=== PATIENT | male | born 1935 | race Caucasian/White ===

== ENCOUNTER 2023-04-05 08:57 | Observation (INO) ==
--- NOTE | 2023-03-30 10:55 | Anesthesiology Consultation ---
Date of Service March 30, 2023 Assessment & Plan (1) Encounter for pre-operative examination: Chart Review Chart Review: Acceptable Risk for Surgery and Patient NOT seen in Pre Admission Testing - Spoke with daughter 03/30/23- patient had fall beginning of 03/2023. Has since seen surgeon since fall. Patient to get sutures removed from right 4th and 5th digits, Sunday04/02/23 (healing well per daughter)). Patient does have minor fracture of right metacarpal- no formal splint needed but wrapping hand up daily with cause as form of splint. Will have in place DOS. -Infectious Disease screening: Per PAT nursing assessment on 03/30/23. No known infectious disease contacts in past 10 days or current infectious disease symptoms. No recent travel outside the country. History Surgery Operation Date: 04/05/23 08:15 Proposed Procedures p Robotic Laparoscopic Assisted Partial Nephrectomy, Possible Radical-Right - Ori Enciso DO Height/Weight Height: 5 ft 9 in Weight: 72.575 kg Allergies Allergy/AdvReac Type Severity Reaction Status Date / Time No Known Allergies Allergy Verified 03/02/23 11:21 Medications Home Medications Medication Instructions Recorded Confirmed Last Taken atorvastatin 20 mg tablet 20 mg PO QPM 02/12/23 03/30/23 Unknown cholecalciferol (vitamin D3) 25 25 mcg PO DAILY 02/12/23 03/30/23 Unknown mcg (1,000 unit) capsule coenzyme Q10 100 mg capsule 100 mg PO DAILY 02/12/23 03/30/23 Unknown escitalopram oxalate 10 mg tablet 10 mg PO QAM 02/12/23 03/30/23 Unknown levothyroxine 112 mcg capsule 112 mcg PO QAM 02/12/23 03/30/23 Unknown melatonin 5 mg capsule 5 mg PO QPM PRN Sleep 02/12/23 03/30/23 Unknown triamcinolone acetonide 0.1 % 1 applic topical BID PRN skin 02/12/23 03/30/23 Unknown topical cream irritation tumeric root extract 1 tab PO DAILY 02/12/23 03/30/23 Unknown carbidopa 25 mg-levodopa 100 mg 1.5 tab PO QID 02/15/23 03/30/23 Unknown tablet carbidopa ER 50 mg-levodopa 200 mg 1 tab PO HS 02/15/23 03/30/23 Unknown tablet,extended release Past Medical History Medical History (Updated 03/30/23 @ 11:29 by Denita Laboy PA-C) Anxiety Constipation Depression Dyslipidemia History of prostate cancer - radiation seeds History of recent fall Beginning of 03/2023- laceration (on his 4th and 5th fingers on right hand) and fx of right metacarpal (no splint- just has gauze in place) Hypothyroidism Parkinson disease Right bundle branch block follows w/ cardio at [facility] Right kidney mass Past Surgical History Surgical History Hx of colonoscopy Hx of tooth extraction Social History Smoking Status: Never smoker Do You Dip or Chew Tobacco: No Hx Alcohol Use: No Hx Substance Use: No substance use type: does not use Testing Laboratory Results 03/22/23= WBC: 5.24 H/H: 13.2/39.7 PLATELETS: 209 SODIUM: 139 POTASSIUM: 4.0 CHLORIDE: 106 CO2: 29.0 BUN: 25.0 CREATININE: 1.10 GLUCOSE: 99 03/20/23= URINE CULTURE: No growth- less than 1000 colonies/ml Electrocardiogram Date: 03/22/23 Sinus bradycardia with first-degree AV block at 57 bpm Right bundle branch block Chest X-Ray Date: 03/22/23 Findings: + NAD No acute cardiopulmonary process identified. Mild atherosclerotic changes of aorta. Coarse bilateral interstitial lung markings are present. Linear scarring and/or atelectasis of lower lobes and lung bases again seen. Other Testing CT thorax = scattered atelectasis mostly mid and lower lung field bilaterally. Mild emphysema. Subtle subpleural secondary lobular septal thickening. No lung nodules. Nonspecific subtle subcentimeter lucencies within the visualized thoracic and lumbar vertebral arteries CT abdomen 03/09/2023 = large solid mass within upper/mid pole right kidney. Mass measures at least 6.0 cm. Recommend urology consultation. Subtle subcentimeter lucencies suggested within the visualized thoracic and lumbar vertebral arteries versus normal variation. Consider whole-body bone scan to further evaluate as clinically warranted. 3.4 probable cyst midpole right kidney. 3 mm stone lower right renal pelvis. 8.2 cm cyst midpole left kidney. 5 mm hypodensity mid/lower pole left kidney. Favor hemorrhagic cyst. Other etiology not excluded. 5 mm hypodensity midpole left kidneyfavors hemorrhagic cyst. 1 cm cyst upper pole left kidney. 1.2cm cyst midpole left kidney. 1 cm probable cyst right lobe of the liver.
[~2023-04-05 08:57] MED LIST: LR 15ML/HR IV SCH; REMIFENTANIL HCL 1 MG VIAL IV ONE; ceFAZolin 2000MG 2,000 MG/15 ML SYR IV SCH
--- NOTE | 2023-04-05 09:16 | History & Physical Bridge Note ---
Date of Service April 05, 2023 History & Physical Bridge Note I have examined the patient, reviewed the History & Physical and in the interval since the performance of the History & Physical I have noted the following changes of clinical significance: no changes noted
[2023-04-05] MEDS ORDERED: BUPIVACAINE 0.5 % 5 MG/1 ML MPF 30ML VIAL ONE (10:29)
[2023-04-05] MEDS ORDERED: LIDOCAINE 2% 2 ML VIAL/AMP(20MG/ML) INFIL ONE (10:30)
[2023-04-05] MEDS ORDERED: fentaNYL citrate PF 100 MCG/2 ML VIAL ONE (10:30)
[2023-04-05] MEDS ORDERED: PROPOFOL IV EMULSION 10 MG/ML 20 ML VIAL IV ONE (10:30)
[2023-04-05] MEDS ORDERED: DEXAMETHASONE SOD INJ 4 MG/ML VIAL ONE (10:30)
[2023-04-05] MEDS ORDERED: ROCURONIUM BROMIDE 10 MG/ML 5 ML VIAL IV ONE ×3 (10:30→12:23)
[2023-04-05] MEDS ORDERED: ONDANSETRON INJ 2 MG/ML 2 ML VIAL ONE (10:30)
[2023-04-05] MEDS ORDERED: ePHEDrine sulfate 50 MG/ML AMP IV PRN (10:38)
[2023-04-05] MEDS ORDERED: fentaNYL citrate PF 100 MCG/2 ML VIAL IV PRN (10:38)
[2023-04-05] MEDS ORDERED: ONDANSETRON INJ 2 MG/ML 2 ML VIAL IV PRN ×2 (10:38→14:32)
[2023-04-05] MEDS ORDERED: ATROPINE SULFATE 0.1 MG/ML 10ML SYR IV PRN (10:38)
[2023-04-05] MEDS ORDERED: GLYCOPYRROLATE 0.2 MG/ML VIAL ONE (11:43)
[2023-04-05] MEDS ORDERED: HYDROmorphone INJ 2 MG/ML SYR/VIAL ONE (12:29)
[2023-04-05] MEDS ORDERED: ePHEDrine sulfate 50 MG/5 ML SYR ONE (12:33)
[2023-04-05] MEDS ORDERED: PHENYLEPHRINE 100MCG/ML 10ML SYR IV ONE (12:33)
[2023-04-05] MEDS ORDERED: TISSEEL FIBRIN SEALANT 10ML TOP ONE (12:41)
[2023-04-05] MEDS ORDERED: FLOSEAL HEMOSTATIC MATRIX 10ML TOP ONE (12:41)
[2023-04-05] MEDS ORDERED: SURGICEL ABSORB HEMOSTAT 2IN X 14IN TOP ONE (12:41)
[2023-04-05] MEDS ORDERED: SUGAMMADEX SODIUM 200 MG/2 ML VIAL IV ONE (12:43)
--- NOTE | 2023-04-05 13:26 | Operative Report ---
PG Post Operative Report Pre & Post Diagnosis Operation Date: 04/05/23 10:35 Pre-Op Diagnosis: Right Kidney Mass Post-Op Diagnosis: Right Kidney Mass I identified the patient and participated in the time-out.: Yes Procedure Operation Date: 04/05/23 10:35 Actual Procedures p Robotic Assisted Laparoscopic Right Radical Nephrectomy(Right) - Ori Enciso DO Surgeon Ori Enciso, II, DO Heating Systems Installer KIMBERLEE Echavarria Estimated Blood Loss 100 Findings Consistent with Post-Op Diagnosis Large Right renal mass. Duplicated vein and early branch of artery with posterior vessels appearing to enter the medial edge of the tumor. Numerous venous vessels around the mass in the retroperitoneal fat. Specimens Right Radical Kidney Drains 18 Fr Mathis Anesthesia Type General Complications none Disposition Disposition: Recovery Room Indications Patient with right renal mass suspicious for malignancy. Risks and benefits discussed at length. Description of Procedure The patient was brought to the operative suite and placed under general endotracheal intubation anesthesia in the supine position. The patient was transferred to lateral position with the right flank exposed. The patient was placed into a flex'ed position and then placed into mild reverse Trendelenberg. At this point, the patient prepped and draped in the usual sterile fashion and a timeout was completed. Preoperative weight based antibiotics had been given. TIFFANY's and SCD's were placed on the patient's lower extremities. A catheter was placed by nursing using sterile technique. With the time out completed the patient was flexed and the skin was marked. The lateral port site was anesthetized. A small incision was made into the skin and subcutaneous tissues. A Varess needle was selected and placed. The needle was easily moved and it was irrigated and aspirated without any issues or concerns for placement. Insufflation commenced. The 8 mm camera port was placed. The abdominal cavity was further insufflated. The laparoscopic camera was placed and the abdominal cavity inspected. No concerning features were noted. At this point, the skin was marked for port placement and 8mm working ports were placed. The skin was anesthetized down to fascia and an approx 1cm incision was made to place the 2 x 8mm ports. A 12 mm Robotic Port and a 12 mm assistant track and field coach port were also placed in similar fashion under direct visualization. The robot was positioned and docked. The camera was placed and all trocars were positioned under direct visualization. Jyothi Echavarria was integral in port placement, camera utilization, and docking procedure. She remained in sterile attire and then proceeded to assist the remainder of the case. The colon was mobilized medially to expose the retroperitoneum and the area assessed. Adhesions were freed to allow mobilization. A small amount of further adhesions were noted from the colon and were freed. These were dissected with blunt technique. Cautery was used to assist dissection and control bleeding. The retroperitoneal fat was assessed. Starting distally the retroperitoneum was dissected and care was taken to dissect down near the IVC. The gonadal vein and ureter were identified. This was then followed superiorly. Dissection stayed toward the midline along the IVC and the ureter and gonadal vein were followed up towards the renal hilum. The dissection was followed to the renal pelvis. The Renal Vein was identified and exposed. Dissection was taken further superior. The Renal Artery and Vein were then cleaned and exposed. Posterior to the Vein and artery an additional vein as well as a likely branch of the renal artery were discovered. These posterior vessels appeared to travel towards the large upper pole mass. The vessels were adequately exposed and good access was achieved. Dissection moved superiorly along the vessels. The perirenal fat anterior to the kidney was then dissected. The medial edge of the mass and surrounding tissues were exposed. The large posterior vessels did appear to enter into the hilum at the location of the medial edge of the mass. Due to this and the large size of the mass, it appeared it would not be amendable to partial nephrectomy. At this point the decision was made to proceed with radical nephrectomy. The Vessels were assessed a final time. A robotic stapling device arm was placed in the 12 mm robotic port. The vessels were able to be completely surrounded with the vascular load of the stapler. The clamp was placed and the vessels assessed. The stapling load was then engaged and the vessels were Ligated/cut and stapled. The stapler was disengaged and no bleeding or issues. The vessel stumps showed no sign of issues or problems. After inspecting the ligated vessels the posterior dissection was then completed to free the kidney posteriorly. The lateral edge of the kidney was then incised further to allow more mobility. The liver was gently retracted and the superior border was dissected. Throughout the superior retroperitoneal tissue and number of vessels were noted. These appear to be associated with the large upper pole mass. With Hem-o-marisela clips were utilized when necessary to ligate these somewhat larger vessels. A majority of the vessels were able to be ligated without major issue. No major considerable bleeding was noted. The superior portion of the retroperitoneal fat was dissected and the attachments to the sidewall and posterior wall were able to be freed without major issue. With the kidney completely freed and the mass undisturbed attention was then taken to the inferior dissection. Moving from the lateral edge down the tissue was freed. The ureter was once again isolated. A vascular staple load from the stapling arm of the robotic device was utilized in order to ligate the ureter and surrounding Gerota/retroperitoneal fat. The kidney was then completely freed. The dissection bed was then irrigated and the entire area inspected. Surgicel hemostatic agent sheets were placed over the vessel stumps and on the resection bed/ inferior edge of liver. Hemostatic agents Tisseel and Floseal were also placed. Hemostatic agent was also placed on the vessels. No major bleeding or other issues. The entire dissection space was inspected one final time. No bleeding or injuries or areas of concern were noted. No tumor or other concerning features were noted. At this point, the robot was undocked and moved away from the patient. The port sites were all assessed laparoscopically. The superior 12 mm assistant track and field coach port site was closed with the Win-Villalta device and were closed with 1-0 Vicryl suture. The inferior robotic port was opened further exposing fascia which was then opened in order to remove the specimen. Once the fascia was opened and the specimen was able to be grasped and removed. No major issues or concerns. No considerable bleeding. A 1-0 PDS suture was used to close fascia. The skin at each site was closed with a skin stapling device. The area was cleaned and bandages placed on each incision. The patient was cleaned and bandaged. The patient was moved back into the supine position The patient was cleaned, aroused from anesthesia, and transferred to the pacu in stable condition having tolerated the procedure well with no complications. I was present and participated in all aspects of the procedure. KIMBERLEE Henao was critical in the portions as mentioned above. I attest to the content of the Intraoperative Record and any orders documented therein. Any exceptions are noted below.
--- NOTE | 2023-04-05 14:05 | Anesthesiology Progress Note ---
Date of Service April 05, 2023 Anesthesia Post Procedure Vital Signs Vital Signs: Temp Pulse Resp BP BP Pulse Ox O2 Del Method 04/05/23 14:00 36.2 C L 60 17 138/81 99 Nasal Cannula 04/05/23 13:50 58 L 17 158/81 H 99 Oxymask 04/05/23 13:40 58 L 18 164/83 H 99 Oxymask 04/05/23 13:30 36.1 C L 60 18 170/84 H 100 Oxymask 04/05/23 10:15 174/94 H 04/05/23 09:37 36.6 C 57 L 20 222/99 H 206/97 H 96 Room Air O2 Flow Rate 04/05/23 14:00 2 04/05/23 13:50 5 04/05/23 13:40 5 04/05/23 13:30 5 04/05/23 10:15 04/05/23 09:37 Transfer of Care Handoff Completed per policy Notes Mental Status: alert / awake / arousable Patient Amnestic to Procedure: Yes Nausea / Vomiting: adequately controlled Pain: adequately controlled Airway Patency, RR, SpO2: stable & adequate BP & HR: stable & adequate Hydration State: stable & adequate Anesthetic Complications: no major complications apparent and Pt Satisfied with anesthetic care
[2023-04-05] MEDS ORDERED: oxyCODONE HCL IR 5 MG TAB (IMMEDIATE RELEASE) PO PRN ×2 (14:32)
[2023-04-05] MEDS ORDERED: MoRPHine SULFATE 2 MG/ML CARP IV PRN (14:32)
[2023-04-05] MEDS ORDERED: MoRPHine SULFATE 4 MG/ML 1 ML CARP\\VIAL IV PRN (14:32)
[2023-04-05 14:36] LABS: Basophils # (auto) 0.02 K/uL (0.00-0.20); Basophils % (auto) 0.3 %; Hematocrit (blood only) 38.8 % (42.0-52.0); Hemoglobin 12.6 g/dl (14.0-18.0); Immature Granulocytes # (auto) 0.04 K/uL (0.01-0.20); Immature Granulocytes % (auto) 0.6 %; Lymphocytes # (auto) 0.66 K/uL (1.20-3.40); Lymphocytes % (auto) 9.9 %; Mean Corpuscular Hemoglobin 29.2 pg (25.0-34.0); Mean Corpuscular Hgb Conc 32.5 g/dL (32.0-36.0); Mean Platelet Volume 10.4 fL (9.4-12.4); Monocytes # (auto) 0.15 K/uL (0.11-0.59); Monocytes % (auto) 2.2 %; Neutrophils # (auto) 5.63 K/uL (1.40-6.50); Platelet Count 159 K/uL (130-400); RDW Coefficient of Variation 12.9 % (11.5-14.5); RDW Standard Deviation 42.8 fL (36.4-46.3); Red Blood Count 4.31 M/uL (4.70-6.10)
[2023-04-05] MEDS ORDERED: MELATONIN 3 MG TAB PO PRN (14:49)
[2023-04-05 15:05] LABS: Calcium 9.4 mg/dl (8.6-10.3); Potassium 3.7 mmol/L (3.5-5.1)
[2023-04-05 15:11] LABS: BUN Creatinine Ratio 15.6 (10-20); Creatinine Clr Calc Pharmacy 53.2 ml/min; Est GFR (African American) 81.5 ml/min; Est GFR (Non-African American) 70.3 ml/min
[2023-04-05] MEDS: SODIUM CHLORIDE 0.9% 1,000 ML IV SCH (15:12)
[2023-04-05] MEDS: ACETAMINOPHEN 325 MG TAB PO SCH ×2 (15:12→20:01)
[2023-04-05] MEDS: CARBIDOPA/LEVODOPA 25/100MG TAB PO SCH (16:08)
[2023-04-05] MEDS: ceFAZolin 2000MG 2,000 MG/15 ML SYR IV SCH (18:40)
[2023-04-05] MEDS: CARBIDOPA/LEVODOPA 50/200MG EXT REL TAB PO SCH (20:00)
[2023-04-05] MEDS: DOCUSATE SODIUM 100 MG CAP PO SCH (20:00)
[2023-04-05] MEDS: ATORVASTATIN 20 MG TAB PO SCH (20:01)
[2023-04-06] MEDS: SODIUM CHLORIDE 0.9% 1,000 ML IV SCH (00:49)
[2023-04-06] MEDS: ACETAMINOPHEN 325 MG TAB PO SCH ×5 (02:52→20:31)
[2023-04-06] MEDS: ceFAZolin 2000MG 2,000 MG/15 ML SYR IV SCH (03:36)
[2023-04-06] MEDS: CARBIDOPA/LEVODOPA 25/100MG TAB PO SCH ×4 (05:40→17:31)
[2023-04-06] MEDS: LEVOTHYROXINE SODIUM 112 MCG TABLET PO SCH (05:41)
[2023-04-06] MEDS ORDERED: ACETAMINOPHEN 325 MG TAB PO STA (06:10)
--- NOTE | 2023-04-06 07:52 | Hospitalist Consultation ---
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, stage 2 (mild): GFR pre op was 70 and Cr Cl was 0.96 (3) Parkinson disease: Pt is on a multi dose regimen at home with am and hs doses in addition to tid dosing of sinemet (4) Depression: chronic and stable continue lexapro (5) Hypothyroidism: chronc and stable continue synthroid ordered tsh for am labs 04/07/23 Plan glucose intolerance will follow post op and add ssi if glc is above 185 or so dvt prevention is scd in the acute post operative state History of Present Illness Reason for Consultation: post op radical right 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 pt is with mild pain in right side, no hematuria, removed david catheter, family at bedside and updated Allergies Allergy/AdvReac Type Severity Reaction Status Date / Time No Known Allergies Allergy Verified 04/05/23 09:40 Home Medications Medication Instructions Recorded Confirmed Type atorvastatin 20 mg tablet 20 mg PO QPM 02/12/23 04/05/23 History cholecalciferol (vitamin D3) 25 25 mcg PO DAILY 02/12/23 04/05/23 History mcg (1,000 unit) capsule coenzyme Q10 100 mg capsule 100 mg PO DAILY 02/12/23 04/05/23 History escitalopram oxalate 10 mg tablet 10 mg PO QAM 02/12/23 04/05/23 History (Lexapro) levothyroxine 112 mcg capsule 112 mcg PO QAM 02/12/23 04/05/23 History melatonin 5 mg capsule 5 mg PO QPM PRN Sleep 02/12/23 04/05/23 History triamcinolone acetonide 0.1 % 1 applic topical BID PRN skin 02/12/23 04/05/23 History topical cream irritation tumeric root extract 1 tab PO DAILY 02/12/23 04/05/23 History carbidopa 25 mg-levodopa 100 mg 1.5 tab PO QID 02/15/23 04/05/23 History tablet carbidopa ER 50 mg-levodopa 200 mg 1 tab PO HS 02/15/23 04/05/23 History tablet,extended release Patient History Medical History (Updated 04/06/23 @ 07:47 by Rah Manzanares MD) Constipation Parkinson disease Right bundle branch block follows w/ cardio at [facility] Anxiety Depression History of prostate cancer - radiation seeds Dyslipidemia Hypothyroidism History of recent fall Beginning of 03/2023- laceration (on his 4th and 5th fingers on right hand) and fx of right metacarpal (no splint- just has gauze in place) Right kidney mass Surgical History Hx of tooth extraction Hx of colonoscopy Social History Smoking Status: Never smoker Second Hand Exposure: No; Do You Dip or Chew Tobacco: No; Hx Alcohol Use: No Hx Substance Use: No Preferred Language: Serbian Communication Ability: Effective Visual Impairment: Limited Hearing Ability: Normal Counter Sales Representative Required: No Beliefs That Will Affect Care: None marital status: / Current Living Situation: Alone current occupational status: retired How many Children do You have: 2 Feels Safe at Home: Yes Diet: regular caffeine: Yes (2 coffees daily) Dental Care, Regularly: Yes Physical Activity Frequency: Does not Exercise Seatbelt Use: always Do you think of yourself as: straight/heterosexual Gender Identity: Male Assistive Devices: None Physical Exam Physical Exam: The patient appeared well nourished and normally developed. 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 Head exam is normocephalic atraumatic Neck is without JVD, thyromegaly, or carotid bruits. Lungs are clear to auscultation, no focal decreased BS at bases Cardiac exam, Rhythm is regular.. ARMANDO Abdominal exam reveals normal bowel sounds, soft non tender, no masses Extremities are nonedematous and both pedal pulses are present Neurologic exam is alert and oriented, no focal loss of strength or sensation mild memory loss Skin is without bruises or rashes Results & Data Results & Data Vital Signs (Past 12 Hours) Vital Signs Temp Pulse Resp BP BP Pulse Ox O2 Del Method 04/06/23 04:47 98.8 F 77 18 146/71 H 95 Room Air 04/06/23 01:17 98.2 F 57 L 16 108/66 95 Room Air 04/05/23 20:00 Room Air 04/05/23 19:58 97.9 F 64 16 139/75 96 Room Air Laboratory Results Reviewed CBC reviewed chemistry PG Care Time/CCT Total # of Minutes Spent Total Time Spent with Patient: Total time spent is greater than 50% in coordination of care (as documented) at patient's floor/unit and/or counseling patient: Coding Level of Care Code 27752 IN/OBS CONSULT LVL 3,45M Diagnoses Right kidney mass N28.89 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
[2023-04-06 07:57] LABS: Basophils # (auto) 0.02 K/uL (0.00-0.20); Basophils % (auto) 0.2 %; Eosinophils # (auto) 0.01 K/uL (0.00-0.50); Eosinophils % (auto) 0.1 %; Hematocrit (blood only) 32.8 % (42.0-52.0); Hemoglobin 10.9 g/dl (14.0-18.0); Immature Granulocytes # (auto) 0.04 K/uL (0.01-0.20); Immature Granulocytes % (auto) 0.4 %; Lymphocytes # (auto) 1.03 K/uL (1.20-3.40); Lymphocytes % (auto) 10.7 %; Mean Corpuscular Hemoglobin 29.8 pg (25.0-34.0); Mean Corpuscular Hgb Conc 33.2 g/dL (32.0-36.0); Mean Corpuscular Volume 89.6 fL (80.0-100.0); Mean Platelet Volume 10.8 fL (9.4-12.4); Monocytes # (auto) 0.83 K/uL (0.11-0.59); Monocytes % (auto) 8.6 %; Neutrophils # (auto) 7.72 K/uL (1.40-6.50); Platelet Count 174 K/uL (130-400); RDW Coefficient of Variation 13.2 % (11.5-14.5); RDW Standard Deviation 43.3 fL (36.4-46.3); Red Blood Count 3.66 M/uL (4.70-6.10); White Blood Count 9.65 K/ul (4.8-10.8)
[2023-04-06 08:16] LABS: BUN Creatinine Ratio 15.8 (10-20); Calcium 9.6 mg/dl (8.6-10.3); Creatinine Clr Calc Pharmacy 33.6 ml/min; Est GFR (African American) 46.7 ml/min; Est GFR (Non-African American) 40.3 ml/min; Potassium 3.9 mmol/L (3.5-5.1)
[2023-04-06] MEDS: ESCITALOPRAM OXALATE 10 MG TAB PO SCH (08:36)
[2023-04-06] MEDS: CHOLECALCIFEROL 25 MCG (1000 UNITS) TAB PO SCH (08:38)
[2023-04-06] MEDS: DOCUSATE SODIUM 100 MG CAP PO SCH ×2 (08:38→20:33)
[2023-04-06] MEDS: CARBIDOPA/LEVODOPA 25-250 1 EA TAB PO SCH (08:52)
--- NOTE | 2023-04-06 09:40 | Urology Progress Note ---
Date of Service April 06, 2023 Assessment & Plan (1) Right kidney mass: Plan: - Patient POD#1 s/p right radical nephrectomy for suspected renal malignancy - Afebrile, hemodynamically stable - Post op lab work reviewed-- Hgb 10.9, no leukocytosis, creatinine increased which can be expected post-operatively-- will continue to trend - Some confusion/agitation overnight but seems to be improving this morning - Will plan to discontinue Mathis catheter and IV fluids this am-- monitor for void - Minimal pain - Tolerating clear liquid diet-- will advance as tolerated - Incisions appropriate - Medicine consulted for assistance with medical management-- appreciate recommendations - Anticipate discharge to home later today or tomorrow if he continues to progress as expected - Expected clinical course reviewed, all questions answered - Will arrange outpatient follow-ups with our service Admission and Anticipated Discharge Date Admission Date: April 05, 2023 Subjective Patient seen and examined at bedside this morning He is awake and resting in bed Issues overnight with confusion/agitation and pulling at catheter and IV tubing Mathis draining yellow urine with some blood tinge Patient denies pain at present Tolerating clear liquids Denies nausea, vomiting, fever or chills Review of Systems Constitutional: as per Subjective / HPI Gastrointestinal: as per Subjective / HPI Genitourinary: + as per Subjective / HPI Physical Exam Constitutional: well developed and well nourished; no acute distress Respiratory: normal respiratory effort; no respiratory distress and no labored breathing Gastrointestinal (Abdomen): Inspection/Auscultation: abdomen normal to inspection Percussion/Palpation: abdomen soft; abdomen nontender Musculoskeletal: Head/Neck/Chest: normocephalic Skin: Incisions C/D/I, well-approximated with brittani Neurologic: awake Psychiatric: Orientation: alert and oriented to person Genitourinary: Mathis patent and draining yellow urine with mild blood-tinged Results & Data Vital Signs (Past 12 Hours) Vital Signs Temp Pulse Pulse Resp BP Pulse Ox O2 Del Method 04/06/23 08:05 37.1 C 72 14 98 Room Air 04/06/23 04:47 37.1 C 77 18 146/71 H 95 Room Air 04/06/23 01:17 36.8 C 57 L 16 108/66 95 Room Air PG Care Time/CCT Total # of Minutes Spent Total Time Spent with Patient: Total time spent is greater than 50% in coordination of care (as documented) at patient's floor/unit and/or counseling patient: Coding Level of Care Code None Diagnoses Right kidney mass N28.89
[2023-04-06] MEDS: CARBIDOPA/LEVODOPA 50/200MG EXT REL TAB PO SCH (20:32)
[2023-04-06] MEDS: ATORVASTATIN 20 MG TAB PO SCH (20:32)
[2023-04-06] MEDS ORDERED: TAMSULOSIN HCL 0.4 MG CAP PO SCH (21:00)
[2023-04-06] MEDS ORDERED: cefTRIAXone SODIUM 1,000 MG in DEXTROSE 5 % MINI-B 50 ML IV SCH (21:00)
--- NOTE | 2023-04-06 23:34 | Communication Note ---
Date of Service: April 06, 2023 Patient was combative towards staff and attempting to remove IV. Unable to be redirected. Concern for harm to both self and staff. Soft limb restraints o rdered. Upon reevaluation pt is resting comfortably with restraints in place.
[2023-04-07] MEDS: ACETAMINOPHEN 325 MG TAB PO SCH ×4 (03:05→16:24)
[2023-04-07] MEDS: CARBIDOPA/LEVODOPA 25/100MG TAB PO SCH ×3 (06:12→11:52)
[2023-04-07] MEDS: LEVOTHYROXINE SODIUM 112 MCG TABLET PO SCH (06:16)
[2023-04-07 06:29] LABS: Basophils # (auto) 0.01 K/uL (0.00-0.20); Basophils % (auto) 0.1 %; Hematocrit (blood only) 31.2 % (42.0-52.0); Hemoglobin 10.4 g/dl (14.0-18.0); Immature Granulocytes # (auto) 0.02 K/uL (0.01-0.20); Immature Granulocytes % (auto) 0.2 %; Lymphocytes # (auto) 0.81 K/uL (1.20-3.40); Mean Corpuscular Hemoglobin 29.7 pg (25.0-34.0); Mean Corpuscular Hgb Conc 33.3 g/dL (32.0-36.0); Mean Corpuscular Volume 89.1 fL (80.0-100.0); Mean Platelet Volume 10.9 fL (9.4-12.4); Monocytes % (auto) 7.4 %; Neutrophils # (auto) 6.64 K/uL (1.40-6.50); Neutrophils % (auto) 82.3 %; Platelet Count 166 K/uL (130-400); RDW Coefficient of Variation 13.1 % (11.5-14.5); RDW Standard Deviation 42.5 fL (36.4-46.3); White Blood Count 8.08 K/ul (4.8-10.8)
[2023-04-07 06:46] LABS: BUN Creatinine Ratio 17.6 (10-20); Calcium 9.3 mg/dl (8.6-10.3); Creatinine Clr Calc Pharmacy 32.1 ml/min; Est GFR (African American) 44.3 ml/min; Est GFR (Non-African American) 38.2 ml/min; Potassium 3.8 mmol/L (3.5-5.1)
[2023-04-07 07:01] LABS: Thyroid Stimulating Hormone 1.119 uIu/ml (0.300-4.500)
[2023-04-07] MEDS ORDERED: amLODIPine BESYLATE 5 MG TAB PO ONE (08:11)
[2023-04-07] MEDS: CARBIDOPA/LEVODOPA 25-250 1 EA TAB PO SCH (09:10)
[2023-04-07] MEDS: DOCUSATE SODIUM 100 MG CAP PO SCH (09:13)
[2023-04-07] MEDS: ESCITALOPRAM OXALATE 10 MG TAB PO SCH (09:13)
[2023-04-07] MEDS: CHOLECALCIFEROL 25 MCG (1000 UNITS) TAB PO SCH (09:13)
[2023-04-07] MEDS ORDERED: OLANZapine ZYDIS 5 MG ORALLY DIS. TAB PO ONE (09:15)
--- NOTE | 2023-04-07 10:26 | Urology Progress Note ---
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 Creatinine came back as 1.59. Appear to be stable - Some confusion/agitation overnight but seems to be improving this morning. Patient is still experiencing some agitation and is very interested in being able to be discharged -Required one-time straight cath last evening. Was started on tamsulosin and has been able to subsequently void without major issue. - Tolerating diet-- will advance as tolerated - Incisions appropriate - Medicine consulted for assistance with medical management-- appreciate recommendations -Will call family to discuss plan. Anticipate discharge to home later today - Expected clinical course reviewed, all questions answered - Will arrange outpatient follow-ups with our service Will likely maintain tamsulosin for now. May experience some issues with dizziness or issues with standing until he is able to tolerate the medication. Did discuss avoiding sudden changes in position. Will plan to have follow-up in approximately week for staple removal with discussion of pathology Admission and Anticipated Discharge Date Admission Date: April 05, 2023 Subjective Postop from urologic surgery. Patient has been tolerating well, but is having some pain and discomfort. Has only needed mild medications for control of pain. Incisions have been mild sore. Having some abdominal distension/gas pains. Catheter removed yesterday. Had to have a straight cath x 1. Was started on tamsulosin and subsequently has been able to void without major issue Has not had severe pain or uncontrollable pain. Patient has been ambulating. Has not had bowel movement or major change. No new nausea or vomiting. Had tolerated anesthesia without major problems Tolerated liquid diet postoperatively. Has been advancing diet. Patient had mild hypotension this morning when standing. Was recently started on alpha-marcus and likely the source. Blood counts have been stable. Hemoglobin came back as 10.4. Creatinine has remained at 1.59. Patient does have some agitation/sundowning at night likely exacerbation baseline issues. Also has not been having good nights of rest Review of Systems Review of Systems: All systems reviewed & are unremarkable except as noted in HPI & below Physical Exam Physical Exam: General: Alert in no acute distress. Answers questions appropriately. HEENT: Normocephalic Atraumatic. Inspection normal. Cranial Nerves 2-12 Grossly intact. Normal inspection of face. Normal inspection of neck. Psychologic: Normal affect. Experiencing some sundowning/agitation at night. Respiratory: Nonlabored. No use of accessory muscles. No tachypnea or dyspnea. Cardiovascular: No tachycardia Skin: [place] and Dry. No rashes or visible lesions. Extremities/Lymphatics: No edema Abdomen: Appropriately tender. Mild distended. No rebound or guarding. Wound: Clean, dry, no erythema or discharge. catheter is removed. 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
[2023-04-07] MEDS ORDERED: HALOPERIDOL LACTATE 5 MG/ML 1 ML VIAL IM STA (13:24)
[2023-04-07] MEDS ORDERED: LORazepam 0.5 MG TAB PO PRN (13:24)
[2023-04-07] MEDS ORDERED: HALOPERIDOL LACTATE 5 MG/ML 1 ML VIAL ONE (13:29)
[2023-04-07] MEDS ORDERED: hydrOXYzine HCL IM SOLN 50 MG/ML 1 ML VIAL IM STA (14:41)
--- NOTE | 2023-04-07 15:51 | Communication Note ---
Date of Service: April 07, 2023 4329 Patient reevaluated. Had a near syncopal episode likely secondary to episode of orthostatic hypotension. Patient did become combative and agitated after episode. Was given dose of haloperidol by hospitalist team. On reevaluation patient with family bedside. Extensive conversation about concerns and issues. Patient appears to be likely experiencing some degree of delirium likely exacerbated by the near syncopal episode. At this point patient is considerably less agitated. He is oriented x 3. Was able to recall and discuss aspects of the recent surgery recalling specific details. Patient is still having some mild issues with voiding. At this point would recommend holding the tamsulosin moving forward. Would recommend continued hydration. Patient has needed minimal narcotics and has been largely relying on acetaminophen for pain control. The last narcotic dose was 1 time yesterday in the evening. Extensive conversation with patient's daughters as well as patient today. Plan is for patient to stay with his daughter at the time of discharge during the recovery period. She did state that her is going to also be available to assist especially if he has some issues with continued unsteadiness at home. Reviewed extensively importance of monitoring transitions in order to avoid another episode of near syncope or a full syncopal episode. Patient and family are going to work on monitoring position changes and assisting with ambulation when necessary. Also discussed potential continued observation in hospital. Patient and family do feel that they would be most comfortable at home and feel that some of his issues are likely due to the unfamiliar place with some sleep disturbance over the last few days. Reviewed options. All are comfortable with moving forward with discharge at this afternoon. Will plan to have patient set up for follow-up in the next week for plans for staple removal as well as likely pathology review. Will reevaluate at that time. Will also likely set up a order for labs in order to reassess kidney function and plan to continue to monitor. If necessary a narcotic prescription can be sent in for pain control if issues become more severe while he is at home. If any major issues or concerns encourage patient and family to contact us.
--- NOTE | 2023-04-07 16:59 | Hospitalist Progress Note ---
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, stage 2 (mild): Plan: GFR pre op was 70 and Cr Cl was 0.96 patient likely may have gravitated to kidney disease 3 (3) Parkinson disease: Plan: Pt is on a multi dose regimen at home with am and hs doses in addition to tid dosing of sinemet (4) Depression: Plan: chronic and stable continue lexapro (5) Hypothyroidism: Plan: chronc and stable continue synthroid ordered tsh for am labs 04/07/23 Plan Patient with hospital delirium family feels is secondary to his surroundings and wishes to take him home he was discharged to the care of his daughter who is a nurse Admission and Anticipated Discharge Date Admission Date: April 05, 2023 Subjective Multiple visits with this patient today and his family initially the initial visit was because of agitation. I did call his family after that visit then I was called to see him with this family because of increased agitation. Patient initially was given Zyprexa 0.5 mg ODT which did not really help significant agitation and I was called again to the bedside and the patient was given 5 mg of IM Haldol. The patient then had a code purple where he briefly lost awareness however he immediately regained awareness and was agitated again. Approximately 2 to 3 hours later patient was more calm and comfortable I was called again back to discuss with the family they felt comfortable taking the patient home. The patient did develop some orthostatic hypotension during these events likely from institution of tamsulosin due to the patient taking out his Mathis with his balloon up. The patient's tamsulosin was placed on hold and the patient will go home with urology follow-up Physical Exam Physical Exam: Patient was in hospital delirium agitated and angry at times Cardiac exam is regular with a systolic murmur Lungs are clear without wheezes good air movement Abdomen NABS right flank is minorly tender Extremities are without edema Results & Data Results & Data Vital Signs (Past 12 Hours) Vital Signs Temp Pulse Resp BP BP Pulse Ox O2 Del Method 04/07/23 15:53 139/75 04/07/23 15:44 98.4 F 65 18 150/76 H 93 Room Air 04/07/23 14:08 135/61 04/07/23 12:45 77/45 L 04/07/23 12:44 93/60 L 04/07/23 12:44 101/56 L 04/07/23 09:17 112/62 04/07/23 08:47 93/53 L 04/07/23 08:46 89/45 L 04/07/23 08:16 100/48 L 04/07/23 07:15 98.1 F 70 16 201/90 H 93 Room Air Laboratory Results Reviewed CBC reviewed chemistry PG Care Time/CCT Total # of Minutes Spent Total Time Spent with Patient: Total time spent is greater than 50% in coordination of care (as documented) at patient's floor/unit and/or counseling patient: Coding Level of Care Code 42024 SUB INP/OBS CARE 3/50MIN Diagnoses Right kidney mass N28.89 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
[2023-04-07] MEDS ORDERED: CARBIDOPA/LEVODOPA 25/100MG TAB PO SCH ×2 (19:00)
[2023-04-07] MEDS ORDERED: CARBIDOPA/LEVODOPA 25-250 1 EA TAB PO SCH (21:00)
== END 2023-04-07 16:32 | disposition home or self-care (01) ==
LOC: ASU 08:57 → 3E 13:27 → INTOOBSV 13:27